=== PATIENT | female | born 1975 | race Caucasian/White ===

== ENCOUNTER → 2023-05-27 16:06 | Outpatient (REF) | payer BC, SELFPAY ==
[2023-05-27 12:51] LABS: % Basophils 1.5 % (0-2); % Eosinophils 1.7 % (0-6); % Immature Granulocytes 0.1 % (0-0.5); % Lymphocytes 24.9 % (20.5-51.1); % Monocytes 7.2 % (1.7-9.3); % Neutrophils 64.6 % (42.2-75.2); Absolute Basophils 0.1 10^3/uL (0-0.2); Absolute Eosinophils 0.1 10^3/uL (0-0.7); Absolute Lymphocytes 1.9 10^3/uL (1.2-3.4); Absolute Monocytes 0.6 10^3/uL (0.1-0.6); Hematocrit 30.4 % (37.0-47.0); Hemoglobin 8.8 g/dL (12.0-16.0); Mean Corp Hgb Conc. 28.9 g/dL (33.0-37.0); Mean Corpuscular Hgb 22.2 pg (27.0-31.0); Mean Corpuscular Volume 76.6 fL (81.0-99.0); Mean Platelet Volume 10.1 fL (7.4-10.4); Nucleated Red Blood Cells % 0 %; Platelet Count 496 10^3/uL (130-400); Red Blood Cell Count 3.97 10^6/uL (4.20-5.40); Red Cell Dist. Width 28.2 % (11.5-14.5); White Blood Cell Count 7.8 10^3/uL (4.8-10.8)
[2023-05-27 14:18] LABS: IgA 250 mg/dl (70-400)
[2023-05-29 14:23] LABS: tTG IgA Antibody 14.1 EU/ml (0-19); tTG IgG Antibody 13.2 EU/ml (0-19)
[2023-05-29 15:39] LABS: Endomysial IgA Antibody Titer <1:10 (<1:10)
== END ==
LOC: OIDL 16:06
PROVIDERS: ATTENDING PHYSICIAN Internal Medicine Hematology & Oncology
DX: D50.0 Iron deficiency anemia secondary to blood loss (chronic) (principal)
CPT/HCPCS: 82784; 83516; 85025; 86231